=== PATIENT | male | born 1945 ===

== ENCOUNTER 2020-12-25 10:24 | Inpatient (IN) | payer MEDICARE, OTHER ==
[2020-12-25 15:52] VITALS: BMI 25.0
[2020-12-25] MEDS ORDERED: Zolpidem Tartrate 5 MG TAB PO PRN (16:13)
[2020-12-25] MEDS ORDERED: Ondansetron ODT 4 MG TAB PO PRN (16:13)
[2020-12-25] MEDS: cefTRIAXone\\ROCEPHIN 1 GM in Sodium Chloride 0.9% 100 ML IVPB SCH (17:45)
[2020-12-25] MEDS: Morphine 4 MG/ML VIAL SLOW IVP PRN (17:45)
[2020-12-25] MEDS: Rosuvastatin 20 MG TAB PO SCH (20:31)
[2020-12-26] MEDS: Levothyroxine Sodium 112 MCG TAB PO SCH (05:29)
[2020-12-26 06:07] LABS: #Eosinphils 0.3 thou/uL (0.0-0.7); #Lymphocytes 1.7 thou/uL (1.20-3.40); #Monocytes 0.8 thou/uL (0.11-0.59); #Neutrophils 4.5 thou/uL (1.40-6.50); %Basophils 0.1 % (0.0-1.0); %Eosinophils 3.8 % (0.0-10.0); %Lymphocytes 23.6 % (21.0-51.0); %Monocytes 10.2 % (0.0-10.0); %Neutrophils 62.3 % (42.0-75.0); Hemoglobin 13.8 g/dL (14.0-18.0); Mean Corpuscular HGB CONC 34.3 g/dL (32.0-36.0); Mean Corpuscular Hemoglobin 31.1 pg (27.0-31.0); Mean Corpuscular Volume 90.6 fL (78.0-98.0); Mean Platelet Volume 8.3 fL (7.4-10.4); Platelet Count 139 thou/uL (130-400); RBC Distribution Width 12.7 % (11.5-14.5); Red Blood Cell (RBC) Count 4.42 mill/uL (4.70-6.10); White Blood Cell (WBC) Count 7.3 thou/uL (4.8-10.8)
[2020-12-26] MEDS: Acetaminophen 325 MG TAB PO PRN (06:16)
[2020-12-26 06:38] LABS: ALT (SGPT) 364 U/L (8-55); Albumin 3.8 g/dL (3.4-4.8); Alkaline Phosphatase 200 U/L (40-110); Anion Gap 13 mmol/L (10-20); Calc. Creatinine Clearance 80 mL/min (70-130); Calcium 8.9 mg/dL (7.8-10.44); Carbon Dioxide 22 mmol/L (23-31); Chloride 109 mmol/L (98-107); Globulin 2.3 g/dL (2.4-3.5); Glucose 94 mg/dL (83-110); Potassium 3.7 mmol/L (3.5-5.1); Protein, Total 6.1 g/dL (5.8-8.1); Sodium 140 mmol/L (136-145)
[2020-12-26 06:58] LABS: AST (SGOT) 208 U/L (5-34); BUN (Urea Nitrogen) 13 mg/dL (8.4-25.7); Bilirubin, Total 0.8 mg/dL (0.2-1.2); Lipase 318 U/L (8-78)
[2020-12-26] MEDS ORDERED: Indomethacin 50 MG SUPP ONE (08:41)
[2020-12-26] MEDS ORDERED: Iothalamate Meglumine 60% 50 ML VIAL FS ONE (08:42)
[2020-12-26] MEDS ORDERED: Promethazine HCl 25 MG/ML VIAL SLOW IVP PRN (08:45)
[2020-12-26] MEDS ORDERED: Promethazine HCl 25 MG/ML VIAL IM PRN (08:45)
[2020-12-26] MEDS ORDERED: Morphine Sulfate 2 MG/ML SYRINGE SLOW IVP PRN (08:45)
[2020-12-26] MEDS ORDERED: Ondansetron HCl/PF 4 MG/2 ML Vial IVP PRN (08:45)
[2020-12-26] MEDS ORDERED: Meperidine HCl/PF 25 MG/ML VIAL SLOW IVP PRN ×2 (08:45)
[2020-12-26] MEDS ORDERED: Ketorolac Tromethamine 30 MG/ML VIAL IVP PRN (08:45)
[2020-12-26] MEDS: Ezetimibe 10 MG TAB PO SCH (09:28)
[2020-12-26] MEDS: Morphine 4 MG/ML VIAL SLOW IVP PRN (16:57)
[2020-12-26] MEDS: cefTRIAXone\\ROCEPHIN 1 GM in Sodium Chloride 0.9% 100 ML IVPB SCH (16:58)
[2020-12-26] MEDS: Rosuvastatin 20 MG TAB PO SCH (20:47)
[2020-12-27] MEDS: Levothyroxine Sodium 112 MCG TAB PO SCH (05:17)
[2020-12-27] MEDS: Ezetimibe 10 MG TAB PO SCH (09:28)
[2020-12-27] MEDS ORDERED: traMADol HCl 50 MG TAB PO PRN (12:59)
[2020-12-27] MEDS: cefTRIAXone\\ROCEPHIN 1 GM in Sodium Chloride 0.9% 100 ML IVPB SCH (17:40)
[2020-12-27] MEDS: Rosuvastatin 20 MG TAB PO SCH (19:55)
[2020-12-28] MEDS: Levothyroxine Sodium 112 MCG TAB PO SCH (05:58)
[2020-12-28] MEDS: Ezetimibe 10 MG TAB PO SCH (08:29)
[2020-12-28 10:38] LABS: Platelet Count 157 thou/uL (130-400)
[2020-12-28 11:07] LABS: EPI 94 SEC (67-199)
[2020-12-28 11:32] LABS: INR-International Normal Ratio 0.9; Prothrombin Time 12.8 sec (12.0-14.7)
[2020-12-28] MEDS: cefTRIAXone\\ROCEPHIN 1 GM in Sodium Chloride 0.9% 100 ML IVPB SCH (18:26)
[2020-12-28] MEDS: Rosuvastatin 20 MG TAB PO SCH (20:51)
[2020-12-29 02:14] LABS: SARS-CoV-2 PCR by NAA Not Detected (NotDetected)
[2020-12-29] MEDS: Levothyroxine Sodium 112 MCG TAB PO SCH (06:01)
[2020-12-29] MEDS ORDERED: Scopolamine 1.5 mg/72 hour Patch ONE (09:45)
[2020-12-29] MEDS ORDERED: EPINEPHrine 1 MG/ML AMP ONE (09:53)
[2020-12-29] MEDS ORDERED: Sodium Chloride 0.9% 0 ML ONE (09:53)
[2020-12-29] MEDS ORDERED: Iopamidol 0 ML ONE (09:53)
[2020-12-29] MEDS ORDERED: Bupivacaine 0.25% HCL 30 ML VIAL ONE (09:53)
[2020-12-29] MEDS ORDERED: Fentanyl 250 MCG/5 ML VIAL ONE (10:03)
[2020-12-29] MEDS ORDERED: Iopamidol 30 ML ONE (10:22)
[2020-12-29] MEDS ORDERED: ePHEDrine Sulfate 50 MG/10 ML VIAL ONE (10:44)
[2020-12-29] MEDS ORDERED: PROPOFOL 200 MG/20 ML VIAL ONE (10:44)
[2020-12-29] MEDS ORDERED: Lidocaine 1% PF 5 ML VIAL ONE (10:44)
[2020-12-29] MEDS ORDERED: Rocuronium Bromide 10 MG/ML (10ML VIAL) ONE (10:44)
[2020-12-29] MEDS ORDERED: PHENYLEPHRINE-NS 100 MCG/ML 10 ML SYRINGE ONE (10:44)
[2020-12-29] MEDS ORDERED: Glycopyrrolate 0.2 MG/ML 5 ML SYRINGE ONE (10:44)
[2020-12-29] MEDS ORDERED: Ondansetron PF 4 MG/2 ML Vial ONE (10:44)
[2020-12-29] MEDS ORDERED: Dexamethasone 20 MG/5 ML VIAL ONE (10:44)
[2020-12-29] MEDS ORDERED: Ketorolac Tromethamine 30 MG/ML VIAL ONE (10:44)
[2020-12-29] MEDS: Ezetimibe 10 MG TAB PO SCH ×3 (12:00→15:18)
[2020-12-29] MEDS ORDERED: Acetaminophen/Codeine 30-300mg Tablet PO PRN (12:12)
[2020-12-29] MEDS ORDERED: Fentanyl 100 MCG/2 ML VIAL ONE (12:24)
[2020-12-29] MEDS: Rosuvastatin 20 MG TAB PO SCH (21:00)
[2020-12-30] MEDS: Levothyroxine Sodium 112 MCG TAB PO SCH (06:31)
[2020-12-30] MEDS: Acetaminophen 325 MG TAB PO PRN (06:33)
[2020-12-30 08:24] VITALS: BP 131/74; TEMP 97.8
[2020-12-30] MEDS: Ezetimibe 10 MG TAB PO SCH (09:23)
== END 2020-12-30 11:01 | disposition home or self-care (01) | DRG 418 ==
LOC: SURG B 14:20
PROVIDERS: ADMIT Hospitalist; ATTEND Internal Medicine
PROC: 0FT44ZZ Resection of Gallbladder, Percutaneous Endoscopic Approach (ICD-10-PCS; principal; 2020-12-29)
PROC: BF502Z0 Other Imaging of Bile Ducts using Fluorescing Agent, Intraoperative (ICD-10-PCS; 2020-12-29)
DX: K85.10 Biliary acute pancreatitis without necrosis or infection (principal); K80.10 Calculus of gallbladder with chronic cholecystitis without obstruction; I25.10 Atherosclerotic heart disease of native coronary artery without angina pectoris; E78.5 Hyperlipidemia, unspecified; Z20.822 Contact with and (suspected) exposure to COVID-19; I10 Essential (primary) hypertension; K21.9 Gastro-esophageal reflux disease without esophagitis; Z85.6 Personal history of leukemia; Z88.8 Allergy status to other drugs, medicaments and biological substances; Z95.5 Presence of coronary angioplasty implant and graft; E03.9 Hypothyroidism, unspecified; Z79.890 Hormone replacement therapy; Z79.899 Other long term (current) drug therapy; Z79.01 Long term (current) use of anticoagulants
CPT/HCPCS: 36415; 47532; 80053; 83690; 85025; 85576; 85610; 87635; 88304; 93005; 93010; J0171; J0690; J0696; J1100; J1610; J1885; J2270; J2405; J2704; J3010; J3490; Q9961; Q9967; S0020; U0003; U0005